=== PATIENT | female | born 1990 | race Caucasian/White ===

== ENCOUNTER 2016-12-22 14:13 | Observation (INO) ==
--- NOTE | 2016-12-22 14:46 | OB/GYN Progress Note ---
Date of Encounter: 12/22/16 Time of Encounter: 14:44 - Assessment and Plan (1) Abdominal pain affecting Current Visit: Yes Status: Acute UC noted every 3-5 minutes on toco. No SVE change since appt yesterday. Onset of pain after eating. DD: gastric upset vs labor vs contractions from dehydration Await UA results. PO hydrate. Will recheck SVE in 1-2 hours if contractions persist after hydration. (2) 36 weeks gestation of Current Visit: Yes Status: Acute (3) Lightheadedness Current Visit: Yes Status: Acute Likely due to dehydration. PO hydrate. (4) NST (non-stress test) reactive Current Visit: Yes Status: Acute Subjective - Subjective Interval history: 26 year-old presenting at 36w2d with c/o lightheadedness and abdominal pain and pressure. Pt states she was at work today and felt fine until after she ate lunch. After lunch she started feeling lightheaded and tingly and has been having some abdominal pain and pressure that feels like she needs to have a BM. No LOF or VB. Good FM. Antepartum ROS: movement normal, contractions, no loss of fluid, no vaginal bleeding Objective - Exam FHR: category 1 FHR comments: 135 RNST Abdomen: Present: soft, gravid. Absent: tenderness Uterus: Absent: tenderness Cervical dilation: 3 Cervix effacement: 60 station: -1
[2016-12-22 15:31] LABS: Bilirubin,Urine Negative (Negative); Blood,Urine Negative (Negative); Clarity,Urine Cloudy (Clear); Color,Urine Yellow (Yellow); Glucose,Urine (UA) Normal (Normal); Ketones,Urine Negative (Negative); Leukocyte Esterase,Urine Moderate (Negative); Nitrite,Urine Negative (Negative); Protein,Urine Trace mg/dL (Neg-Trace); Specific Gravity,Urine 1.029 (1.010-1.025); Urobilinogen,Urine Normal (Normal)
[2016-12-22 15:33] LABS: Bacteria,Urine Moderate per hpf (None-Few); Hyaline Casts,Urine None Seen per lpf (None-Few); Squamous Epithelial Cell,Urine Many per lpf (None-Few); WBC,Urine 30-50 per hpf (0-3)
[2016-12-22 15:49] LABS: RBC,Urine 0-3 per hpf (0-3)
== END 2016-12-22 17:11 | disposition home or self-care (01) ==
LOC: 1NENULAB
PROVIDERS: ADMIT Obstetrics & Gynecology; ATTEND Obstetrics & Gynecology

== ENCOUNTER → 2016-12-28 18:55 | Observation (INO) ==
--- NOTE | 2016-12-28 18:46 | OB/GYN Progress Note ---
Date of Encounter: 12/28/16 Time of Encounter: 18:44 - Assessment and Plan (1) 37 weeks gestation of Current Visit: Yes Status: Acute (2) Abdominal pain affecting Current Visit: No Status: Acute No cervical change since appointment today in office and on 2 exams in triage. Discharge home with labor precautions. (3) NST (non-stress test) reactive Current Visit: No Status: Acute Subjective - Subjective Interval history: 26 year-old presenting at 37 weeks gestation with c/o contractions every 5- 6 minutes. She denies LOF or VB. Good FM. She states the pain is staying the same and is not getting any worse at this time. Antepartum ROS: movement normal, contractions, no loss of fluid, no vaginal bleeding Objective - Vital Signs Vital Signs: Intake and Output 12/28/16 12/28/16 12/28/16 07:59 15:59 23:59 Other: Weight 90.265 kg Patient Weight 12/28/16 23:59 Weight 90.265 kg - Exam FHR: category 1 FHR comments: NST reactive. 130 BPM Abdomen: Present: soft, gravid. Absent: tenderness Uterus: Absent: tenderness Cervical dilation: 4/80/-2 Comments: No cervical change noted on repeat SVE
== END | disposition home or self-care (01) ==
LOC: 1NENULAB

== ENCOUNTER 2017-01-14 01:20 | Inpatient (IN) ==
[2017-01-14] MEDS ORDERED: Ringers Solution, Lactated 1,000 ML ONE (02:06)
[2017-01-14] MEDS ORDERED: *HR* Nalbuphine 20 MG/ML AMPUL IVP PRN (02:09)
[2017-01-14] MEDS ORDERED: *HR* FentaNYL (PF) 100 MCG/2 ML VIAL ONE (02:24)
[2017-01-14] MEDS ORDERED: Epidural Premix (fent/bupiv) 0 ML EP ONE (02:25)
[2017-01-14] MEDS ORDERED: Bupivacaine-MPF 0.25% 10 ML VIAL ONE (02:25)
[2017-01-14] MEDS ORDERED: Oxytocin 20 units/ LR 1000 mL 20 UNIT/1,000 ML BAG IVC ONE (02:36)
[2017-01-14] MEDS ORDERED: Lidocaine 1% 20 ML MDV ONE (02:45)
--- NOTE | 2017-01-14 03:19 | OB/GYN Procedure Note ---
Delivery - Delivery Date: 01/14/17 Provider: Keren Mon Intrapartum events: none Delivery induction: none Delivery monitor: external FHT Anesthesia: none Estimated Blood Loss: 200 - (s) Infant A Delivery Date: 01/14/17 Delivery Time: 02:41 Presentation: vertex Position: ANUP Gender: Male Viability: Viable Weight Gram: 3.405 kg at 1 minute: 7 at 5 mins: 8 Shoulder Dystocia: not encountered Placenta: complete extraction Cord: nuchal cord - Repair Episiotomy: none Laceration Description: Periurethral - Complications Delivery complications: none - Disposition Mom disposition: stable in LDR disposition: taken to nursery - Comments Comments: Parth is a 26 y/o @ 38 weeks who presented to L and D fully dilated and delivered almost immediately upon arrival a viable male infant weight 3405g, APGARs pending @ 0241hrs, delivered ANUP, nuchal cord x 1 was reduced, 3VC , placenta was delivered 9 mins later, periurethral lacerations repaired with 4 -0 vicryl. Mother and infant stable.
[2017-01-14] MEDS ORDERED: *HR* Oxytocin 10 UNIT/ML VIAL IM ONE ×2 (03:30→04:16)
[2017-01-14] MEDS ORDERED: Rho Immune Globulin 1,500 UNIT SYRINGE IM PRN (04:16)
[2017-01-14] MEDS ORDERED: Acetaminophen 325 MG TABLET PO PRN (04:16)
[2017-01-14] MEDS ORDERED: Measles/Mumps/Rubella Vacc 0.5 ML VIAL SQ PRN (04:16)
[2017-01-14] MEDS ORDERED: Oxytocin 20 units/ LR 1000 mL 20 UNIT/1,000 ML BAG IVC SCH (04:16)
--- NOTE | 2017-01-14 08:33 | OB/GYN History & Physical ---
Date of Encounter: 01/14/17 Time of Encounter: 08:31 Assessment and Plan (1) Status post normal vaginal delivery Current visit: Yes Status: Acute patient delivered upon arrival to and D, will send to for continued recovery. History of Present Illness HPI: Ms. Alba is a 26 year old female @ 38 weeks who presented to L and D fully dilated, after SROM early in the morning. She delivered almost immediately she arrived on L and D. pls see delivery notes. Past Med Surg Social Fam HX - Past Medical History Medical history: no medical history Psychiatric history: no psych history - Past Surgical History Surgical History: no surgical history - Social History Smoking Status: Never smoker Smokeless Tobacco Status: No Alcohol use: none Drug use: none - Family History Mother Adopted: No Living Status: Still Living Hx Family Cardiac Disorders: No Hx Family Respiratory Disorders: No Hx Family Cancer: No Hx Family GI Disorders: No Hx Family Genitourinary Disorders: No Hx Family Endocrine Disorder: No Hx Family Musculoskeletal Disorders: No Hx Family Neuromuscular Disorders: No Hx Family Neurologic Disorders: No Hx Family HEENT Disorders: No Hx Family Autoimmune Disorders: No Hx Family Reproductive Disorders: No Hx Family Psychosocial Disorders: No Hx Family Medical Disorders: No Obstetrical History - Pregnancies : 2 Para: 1 Medications and Allergies Vit/Iron Fumarate/FA [ Tablet] 1 tab PO DAILY 12/28/16 [History ] Allergies Cefaclor Allergy (Verified 12/28/16 17:33) See Comments Review of System OB All systems PM: reviewed and no additional remarkable complaints except as stated Exam - Vital Signs Vital signs: Initial Vital Signs Temp Pulse Resp BP Pulse Ox 98.4 F 80 16 105/59 99 01/14/17 05:50 01/14/17 05:50 01/14/17 05:50 01/14/17 05:50 01/14/17 05:50 - Constitutional Constitutional: no acute distress - HEENT HEENT: Normocephaly - Neck Neck exam: full ROM - Lungs Respiratory exam: CTAB - Cardiovascular Cardiovascular exam: RRR - Abdomen Abdomen: Present: bowel sounds normal - Extremities Extremities exam: normal inspection Results All other labs normal.
[2017-01-14] MEDS: Prenatal Vit/FA 1 EACH TABLET PO SCH (09:25)
[2017-01-14] MEDS: Ibuprofen 600 MG TABLET PO PRN (09:25)
[2017-01-15 08:08] VITALS: BP 109/60
[2017-01-15] MEDS: Ibuprofen 600 MG TABLET PO PRN (08:09)
[2017-01-15] MEDS: Prenatal Vit/FA 1 EACH TABLET PO SCH (08:09)
[2017-01-15 08:29] LABS: Basophils % 0.3 %; Eosinophils # 0.1 K/mcL (0.0-0.6); Eosinophils % 0.6 %; Hematocrit 31.7 % (35.3-44.9); Hemoglobin 10.6 g/dL (11.5-15.4); Immature Granulocytes % 0.5 % (0-4); Lymphocytes # 3.4 K/mcL (0.6-4.6); Lymphocytes % 23.5 %; Mean Corpuscular HGB Conc 33.4 g/dL (31.6-35.5); Mean Corpuscular Volume 92.7 fL (83.0-100.0); Mean Platelet Volume 10.1 fL (9.4-12.4); Monocytes # 0.7 K/mcL (0.0-1.3); Monocytes % 5.2 %; Platelet Count 208 K/mcL (140-400); Red Blood Count 3.42 M/mcL (3.82-4.97); Red Cell Distribution Width 13.5 % (11.5-14.5); Segmented Neutrophils % 69.9 %
--- NOTE | 2017-01-15 08:57 | Discharge Summary ---
Date of Encounter: 01/15/17 Time of Encounter: 08:55 - Discharge Diagnosis (1) Status post normal vaginal delivery Priority: Primary Status: Acute (2) Breast feeding status of mother Priority: Primary Status: Acute - Discharge Medications Prescriptions: Ibuprofen [Motrin] 600 mg PO Q6HR PRN #20 tablet PRN Reason: Cramping Docusate [Colace] 100 mg PO BID PRN #20 capsule PRN Reason: Constipation Home Medications: Vit/Iron Fumarate/FA [ Tablet] 1 tab PO DAILY 12/28/16 [History ] Docusate [Colace] 100 mg PO BID PRN #20 capsule 01/15/17 [Rx] Ferrous Sulfate 325 mg PO DAILY tablet 01/15/17 [Rx] Ibuprofen [Motrin] 600 mg PO Q6HR PRN #20 tablet 01/15/17 [Rx] Allergies/Adverse Reactions: Allergies Cefaclor Allergy (Verified 12/28/16 17:33) See Comments Data Procedures and tests throughout hospitalization: Laboratory Tests 01/14/17 01/15/17 04:00 07:48 WBC 14.3 H RBC 3.42 L Hgb 10.6 L Hct 31.7 L MCV 92.7 MCH 31.0 MCHC 33.4 RDW 13.5 Plt Count 208 MPV 10.1 Immature Gran % 0.5 Seg Neutrophils % 69.9 Lymphocytes % 23.5 Monocytes % 5.2 Eosinophils % 0.6 Basophils % 0.3 Neutrophils # 10.0 H Lymphocytes # 3.4 Monocytes # 0.7 Eosinophils # 0.1 Basophils # 0.0 Baby's Blood Type A RH NEGATIVE Mother's Blood Type A RH NEGATIVE Rhogam Indicated NO Labs on day of discharge: Labs from last 24 hours 01/15/17 07:48 WBC 14.3 H RBC 3.42 L Hgb 10.6 L Hct 31.7 L MCV 92.7 MCH 31.0 MCHC 33.4 RDW 13.5 Plt Count 208 MPV 10.1 Immature Gran % 0.5 Seg Neutrophils % 69.9 Lymphocytes % 23.5 Monocytes % 5.2 Eosinophils % 0.6 Basophils % 0.3 Neutrophils # 10.0 H Lymphocytes # 3.4 Monocytes # 0.7 Eosinophils # 0.1 Basophils # 0.0 Date of admission: 01/14/17 01:20 Primary care physician: Raymundo Luke CNP Consults: 01/14/17 04:16 Consult to Administrative Office Assistant [CONS] Routine Comment: Vaginal delivery, consult needed Discharging clinician: Barbara Grossman Anticipated date of discharge: 01/15/17 - Patient Status Disposition: Home, Self-Care Condition: Good Overall status at discharge: patient is back to baseline - Discharge Instructions Follow Up With: Raymundo Luke CNP [Primary Care Provider] - - Diet and Activity Diet: regular diet Hospital Course Reason for admission: active labor Delivery: Episiotomy: none Laceration: other (Periurethral) Other procedures: none complications: none Discharge diagnosis: IUP at term delivered [place] baby: male Hospital course: Parth is a 26 y/o @ 38 weeks who presented to L and D fully dilated and delivered almost immediately upon arrival a viable male . There was a periurethral laceration which was repaired. She is breast-feeding without complications. Time Attestation: Total time spent providing and/or coordinating discharge services: Exam - Constitutional Vitals: Temp Pulse Resp BP Pulse Ox 98.1 F 68 18 109/60 98 01/15/17 07:45 01/15/17 07:45 01/15/17 07:45 01/15/17 07:45 01/14/17 19:52 General appearance IM: A&O X 3, pleasant, no acute distress, answers questions appropriately - Respiratory Respiratory exam: Present: CTAB - Cardiovascular Cardiovascular exam IM: Present: RRR, +S1, +S2 - GI/Abdominal GI/Abdominal exam IM: normal bowel sounds, soft - Uterus Position: 2 Fingers Below Umbilicus - Extremities Exam Extremities exam IM: Present: warm. Absent: pedal edema - Attending Attestation I examined this patient and my medical decision-making was reviewed with the BORING MACHINE OPERATOR HORIZONTAL/PA/Advanced Practice Nurse/Resident Physician. I agree with the documented findings, disposition and treatment plan as described except to the extent set forth below.
== END 2017-01-15 15:10 | disposition home or self-care (01) | DRG 775 ==
LOC: 1NENULAB 01:20 → 1NENUOBS 05:51
PROVIDERS: ADMIT Student in an Organized Health Care Education/Training Program; ATTEND Student in an Organized Health Care Education/Training Program